=== PATIENT | female | born 1980 | race African-American/Black ===

== ENCOUNTER 2022-07-26 17:56 | Emergency (ER) | payer SELFPAY ==
[~2022-07-26] VITALS: Ht 165.1 cm; Wt 97.7 kg
[2022-07-26 18:12] VITALS: BP 123/72
== END 2022-07-26 19:15 | disposition left against medical advice (07) ==
LOC: EMS 17:56
DX: Z53.21 Procedure and treatment not carried out due to patient leaving prior to being seen by health care provider (principal)